=== PATIENT | male | born 1960 | race Caucasian/White ===

== ENCOUNTER 2018-08-12 07:49 | Emergency (ER) | payer OTHER ==
[~2018-08-12] VITALS: Ht 165.1 cm; Wt 78.0 kg
[~2018-08-12 07:49] MED LIST: ASPI81CT89 PO; LISI30TA6 PO
[2018-08-12 07:55] VITALS: BP 158/98
[2018-08-12] MEDS ORDERED: KETOROLAC 60 MG/2 ML VIAL IM ONE (08:35)
[2018-08-12 09:05] VITALS: BP 148/96
== END 2018-08-12 09:05 | disposition home or self-care (01) ==
LOC: MED 07:49
DX: M85.661 Other cyst of bone, right lower leg (principal); M17.11 Unilateral primary osteoarthritis, right knee; I10 Essential (primary) hypertension; Z79.82 Long term (current) use of aspirin; Z79.899 Other long term (current) drug therapy
CPT/HCPCS: 96372; 99283; J1885